=== PATIENT | male | born 1995 | race Two or more races ===

== ENCOUNTER 2020-11-20 00:44 | Emergency (ER) | payer OTHER ==
[~2020-11-20] VITALS: Ht 170.2 cm; Wt 104.3 kg
[2020-11-20 00:44] VITALS: BP 159/102
--- NOTE | 2020-11-20 01:09 | NUR ---
COVID SWAB COLLECTED, CALLED LAB FOR MANAGER CLIENT
== END 2020-11-20 02:29 ==
LOC: ER 00:45
DX: Z20.822 Contact with and (suspected) exposure to COVID-19 (principal)
CPT/HCPCS: 87426; 99283; C9803